=== PATIENT | female | born 1970 | race Two or more races ===

== ENCOUNTER → 2016-10-01 | Outpatient (CLI) | payer BC ==
--- NOTE | ~2016-10-01 | MY11 ---
[facility] A Service of [facility] RADIOLOGY TEXT RESULTS PATIENT: SAIDA HALEY LOCATION: [facility] : 68 UNIT #: [id number] AGE: [address]: DARWIN KEYES APRN SEX: F ORDER DR: [id number] [facility] [address] [place], [place] [address] [id number] O MR#: [id number] Acc #: [id number] NAME: SAIDA HALEY : 1970 SEX: F STUDY DATE/TIME: 10/01/2016 12:11 UNIT: [facility] ROOM: STUDY DESCRIPTION: MY Mammogram Screening [place] Attending Physician: Darwin Keyes Referring Physician: Darwin Keyes Ordering Physician: Mary Beth Keyes M.D. Primary Care Physician: Bright Eduardo M.D. MEDICAL IMAGING REPORT This report is preliminary unless electronic signature is present EXAM Digital screening mammogram 10/01/2016. [facility] HISTORY 45-year-old woman baseline mammogram. No risk elevation. COMPARISON None FINDINGS Digital imaging of each breast was completed utilizing a two-view examination of each breast in craniocaudal and mediolateral-oblique projections. Review and interpretation of digital mammograms include a second review in conjunction with FDA-approved CAD device. There is a normal parenchymal presentation bilaterally consistent with the patient's age. There are no breast masses imaged and no parenchymal asymmetry is visualized. There are no suspicious microcalcifications and I see no focal architectural disturbance. IMPRESSION Negative screening digital mammogram. One-year followup recommended. Patients over the age of 40 are entered into a reminder system with target due date for the next mammogram. A result letter will also be sent to the patient. BIRADS: 1 Negative Dictated by... Campbell Ness M.D. [facility] A Service of [facility] RADIOLOGY TEXT RESULTS PATIENT: SAIDA HALEY LOCATION: [facility] : 68 UNIT #: [id number] AGE: [address]: DARWIN KEYES APRN SEX: F ORDER DR: THIS IS AN ELECTRONICALLY VERIFIED REPORT Campbell Ness M.D. at 10/03/2016 8:08 AM JBB/augusto TD: 10/01/2016 15:44 JOB #: [id number] MEDICAL IMAGING REPORT Page 1 of 1 COPY
== END | disposition home or self-care (01) ==
LOC: CWCC 11:30 → EDBD 11:36
DX: Z12.31 Encounter for screening mammogram for malignant neoplasm of breast (principal); R19.01 Right upper quadrant abdominal swelling, mass and lump; R19.04 Left lower quadrant abdominal swelling, mass and lump
CPT/HCPCS: G0202

== ENCOUNTER → 2016-10-20 | Outpatient (CLI) | payer BC ==
--- NOTE | ~2016-10-20 | US5 ---
[facility] A Service of [facility] RADIOLOGY TEXT RESULTS PATIENT: SAIDA HALEY LOCATION: [facility] : 68 UNIT #: [id number] AGE: [address]: DARWIN KEYES APRN SEX: F ORDER DR: [id number] [id number] [place], [place] [address] [id number] O MR#: [id number] Acc #: [id number] NAME: SAIDA HALEY : 1970 SEX: F STUDY DATE/TIME: 10/20/2016 11:39 UNIT: [facility] ROOM: STUDY DESCRIPTION: US Abdominal Complete Attending Physician: Darwin Keyes Ordering Physician: Mary Beth Keyes M.D. Primary Care Physician: Bright Eduardo M.D. MEDICAL IMAGING REPORT This report is preliminary unless electronic signature is present EXAM Abdominal ultrasound INDICATIONS Right upper quadrant and left lower quadrant pain. Patient reports that the doctor said he felt ball-like things in her abdomen. This was identified on September 23, 2016. TECHNIQUE Muñoz-scale, color Doppler and color flow Doppler waveform analysis was performed through the abdomen. FINDINGS Pancreas cannot be seen due to overlying bowel gas. Liver is homogeneous in echotexture and no focal hepatic lesions are seen. Gallbladder is also normal in appearance with no stones or sludge identified. There is no gallbladder wall thickening or pericholecystic fluid. Patient's spleen is normal and the abdominal aorta measures within normal size limits. This patient's kidneys are markedly enlarged with innumerable cysts. The findings are characteristic of autosomal dominant polycystic kidney disease and this certainly could account for this patient's history of renal insufficiency. Correlation with family history is recommended. IMPRESSION Patient's kidneys are markedly enlarged and contain innumerable cysts. The findings are characteristic of autosomal dominant polycystic kidney disease and certainly could account for the patient's renal insufficiency. Correlation with family history is recommended. Dictated by... Missy Pate M.D. THIS IS AN ELECTRONICALLY VERIFIED REPORT [facility] A Service of [facility] RADIOLOGY TEXT RESULTS PATIENT: SAIDA HALEY LOCATION: [facility] : 68 UNIT #: [id number] AGE: [address]: DARWIN KEYES APRN SEX: F ORDER DR: Missy Pate M.D. at 10/22/2016 11:20 AM AFF/to TD: 10/20/2016 21:20 JOB #: [id number] MEDICAL IMAGING REPORT Page 1 of 1 COPY
== END | disposition home or self-care (01) ==
LOC: CWCC 10-02 10:30 → EDBD 11:23 → CWCC 11:23
DX: R19.01 Right upper quadrant abdominal swelling, mass and lump (principal); R19.04 Left lower quadrant abdominal swelling, mass and lump; Q61.02 Congenital multiple renal cysts
CPT/HCPCS: 76700